=== PATIENT | male | born 2000 | race Two or more races ===

== ENCOUNTER → 2024-11-22 | Emergency (ER) | payer OTHER ==
[~2024-11-22] VITALS: Ht 175.3 cm; Wt 54.4 kg
[2024-11-22 09:46] LABS: BASO % 0.9 % (0.1-1.2); EOS # 0.16 (0.04-0.54); EOS % 2.3 % (0.7-7.0); LYMPH # 0.81 (1.18-3.74); LYMPH % 11.8 % (19.3-53.1); MEAN PLATELET VOLUME 10.60 fl (9.4-12.4); MONO # 0.87 (0.24-0.82); NEUT # 4.98 (1.56-6.13); NEUT % 72.3 % (34.0-71.1); RED CELL DISTRIBUTION WIDTH 13.2 % (11.6-14.4)
[2024-11-22 09:48] LABS: MONO % 12.6 % (4.7-12.5)
[2024-11-22 10:32] LABS: COVID-19 AG NEGATIVE (NEGATIVE)
== END | disposition home or self-care (01) ==
LOC: ER 07:13
PROVIDERS: General Practice
DX: J06.9 Acute upper respiratory infection, unspecified (principal); Z20.822 Contact with and (suspected) exposure to COVID-19